=== PATIENT | male | born 1965 | race Caucasian/White ===

== ENCOUNTER 2021-03-22 05:23 | Day surgery (SDC) | payer OTHER ==
[2021-03-21 15:35] VITALS: BMI 33.7
[2021-03-22 08:40] VITALS: TEMP 97.1
[2021-03-22 08:56] VITALS: PULSE 62
[2021-03-22 09:39] VITALS: BP 122/75
== END 2021-03-22 09:32 | disposition home or self-care (01) ==
LOC: JASU-ENDO 05:23
PROVIDERS: ATTEND Internal Medicine Gastroenterology
PROC: 0DBP8ZX Excision of Rectum, Via Natural or Artificial Opening Endoscopic, Diagnostic (ICD-10-PCS; 2021-03-22)
PROC: 0DBN8ZX Excision of Sigmoid Colon, Via Natural or Artificial Opening Endoscopic, Diagnostic (ICD-10-PCS; principal; 2021-03-22 08:00)
DX: Z12.11 Encounter for screening for malignant neoplasm of colon (principal); Z83.71 Family history of colonic polyps; D12.5 Benign neoplasm of sigmoid colon; K62.1 Rectal polyp